=== PATIENT | female | born 1950 | race Caucasian/White ===

== ENCOUNTER 2019-03-28 18:54 | Emergency (ER) | payer BC, MEDICARE ==
[2019-03-28] MEDS ORDERED: OXYCODONE-ACETAMINOPHEN 5-325 MG TABLET PO ONE (19:21)
[2019-03-28] MEDS ORDERED: ONDANSETRON 4 MG TAB.RAPDIS PO ONE (19:21)
[2019-03-28] MEDS ORDERED: DIPH/PERTUSS(ACELL)/TETANUS VAC/PF 0.5 ML SYR (>=10YO) IM ONE (19:21)
--- NOTE | 2019-03-28 19:23 | ER Document Report ---
ED Medical Screen (RME) - General Chief Complaint: Toe Injury Stated Complaint: TOE INJURY Time Seen by Provider: 03/28/19 19:17 Primary Care Provider: MARTINA GRIMM [Primary Care Provider] - Follow up as needed Mode of Arrival: Wheelchair Information source: Patient Notes: Patient presents emergency department with complaints of left great toe nail injury. Reports she was taking her garbage out in her yard when a pimple came matter. She was trying to fight off the pitbull with a garbage can tripped and will of the garbage can pulled her nail back. Patient is unsure when her last tetanus was. She did try to clean the area with water. No active bleeding unsure if there is a laceration to the nailbed. I have greeted and performed a rapid initial assessment of this patient. A comprehensive ED assessment and evaluation of the patient, analysis of test results and completion of the medical decision making process will be conducted by additional ED providers. Dictation of this chart was performed using voice recognition software; therefore, there may be some unintended grammatical errors. TRAVEL OUTSIDE OF THE [place] IN LAST 30 DAYS: No - Related Data Allergies/Adverse Reactions: No Known Allergies Allergy (Verified 03/28/19 18:56) Past Medical History - Social History Chew tobacco use (# tins/day): No Frequency of alcohol use: None Drug Abuse: None - Past Medical History Cardiac Medical History: Reports: Hx Hypertension Pulmonary Medical History: Reports: Hx Pneumonia Renal/ Medical History: Denies: Hx Peritoneal Dialysis Past Surgical History: Reports: Hx Section, Hx Orthopedic Surgery - lower back - Immunizations Hx Diphtheria, Pertussis, Tetanus Vaccination: No Physical Exam - Vital signs Vitals: Temp Pulse Resp BP Pulse Ox 98.4 F 115 H 18 122/62 97 03/28/19 18:58 03/28/19 18:58 03/28/19 18:58 03/28/19 18:58 03/28/19 18:58 Course - Vital Signs Vital signs: Temp Pulse Resp BP Pulse Ox 98.4 F 115 H 18 122/62 97 03/28/19 18:58 03/28/19 18:58 03/28/19 18:58 03/28/19 18:58 03/28/19 18:58 Doctor's Discharge - Discharge Referrals: MARTINA GRIMM [Primary Care Provider] - Follow up as needed
--- NOTE | 2019-03-28 20:10 | RADIOLOGY REPORT (SQ) ---
EXAM DESCRIPTION: TOE LEFT COMPLETED DATE/TIME: 03/28/2019 7:44 pm REASON FOR STUDY: great toenail injury COMPARISON: None. NUMBER OF VIEWS: Three views. TECHNIQUE: AP, lateral, and oblique images acquired of the left first toe. LIMITATIONS: None. FINDINGS: MINERALIZATION: Normal. BONES: No fracture. The toe nail is avulsed. JOINTS: No effusions. SOFT TISSUES: No soft tissue swelling. No foreign body. OTHER: No other significant finding. IMPRESSION: Avulsion of the toenail of left great toe. No fracture is seen. COMMENT: SITE OF TRAUMA/COMPLAINT MARKED/STAMP COMPLETED: No TECHNICAL DOCUMENTATION: JOB ID: [id number] [employer]- All Rights Reserved Reading location - IP/workstation name: [email or web address]
[2019-03-28] MEDS ORDERED: HYDROCODONE/ACETAMINOPHEN 5-325 MG (6 TAB/ER DISP) PO PRN (20:57)
[2019-03-28] MEDS ORDERED: CEPHALEXIN 500 MG CAPSULE PO ONE (20:57)
--- NOTE | 2019-03-28 21:03 | ER Document Report ---
ED Extremity Problem, Lower - General Chief Complaint: Toe Injury Stated Complaint: TOE INJURY Time Seen by Provider: 03/28/19 19:17 Primary Care Provider: KEVIN KEARNEY DPM [ACTIVE STAFF] - Follow up in 3-5 days MARTINA GRIMM [NO LOCAL MD] - Follow up as needed Mode of Arrival: Wheelchair Information source: Patient Notes: 68-year-old female presented to ED for complaint of injury to her left great toe nail and toe. She states she was taking her garbage out in the yard when a pit bull came and tried to attacked her. She states she used the garbage can to try to keep the dog off of her and somehow injured her toe. She is not sure what she hit her toe on. She received a tetanus shot after going to the pit area. She states she tried to clean the toe with water. There was no active bleeding when I did examine the patient. Patient stated she did not want lidocaine used she just wanted the toenail removed. X-ray did not show a fractured toe. TRAVEL OUTSIDE OF THE [place] IN LAST 30 DAYS: No - HPI Patient complains to provider of: Injury, Pain Location: Great Toe Occurred: Just prior to arrival Where: Home, Outdoors Onset/Duration: Gradual Quality of pain: Sharp, Throbbing Severity: Moderate Pain Level: 3 Context: Barefoot Recent injury: Yes Associated symptoms: Painful ambulation Exacerbated by: Movement, Walking Relieved by: Nothing - Related Data Allergies/Adverse Reactions: No Known Allergies Allergy (Verified 03/28/19 18:56) Past Medical History - General Information source: Patient - Social History Smoking Status: Never Smoker Chew tobacco use (# tins/day): No Frequency of alcohol use: None Drug Abuse: None Family History: Reviewed & Not Pertinent Patient has suicidal ideation: No Patient has homicidal ideation: No - Past Medical History Cardiac Medical History: Reports: Hx Hypercholesterolemia, Hx Hypertension Pulmonary Medical History: Reports: Hx COPD, Hx Pneumonia EENT Medical History: Reports: None Neurological Medical History: Reports: None Endocrine Medical History: Reports: None Renal/ Medical History: Reports: None Malignancy Medical History: Reports: None GI Medical History: Reports: None Musculoskeletal Medical History: Reports Hx Musculoskeletal Deformity, Reports Hx Musculoskeletal Trauma Skin Medical History: Reports None Psychiatric Medical History: Reports: None Traumatic Medical History: Reports: None Infectious Medical History: Reports: None Past Surgical History: Reports: Hx Section, Hx Orthopedic Surgery - lower back - Immunizations Hx Diphtheria, Pertussis, Tetanus Vaccination: Yes - 03/28/2019 Review of Systems - Review of Systems Constitutional: No symptoms reported EENT: No symptoms reported Cardiovascular: No symptoms reported Respiratory: No symptoms reported Gastrointestinal: No symptoms reported Genitourinary: No symptoms reported Female Genitourinary: No symptoms reported Musculoskeletal: No symptoms reported Skin: Other - Left great toe nail avulsion Hematologic/Lymphatic: No symptoms reported Neurological/Psychological: No symptoms reported Physical Exam - Vital signs Vitals: Temp Pulse Resp BP Pulse Ox 98.4 F 115 H 18 122/62 97 03/28/19 18:58 03/28/19 18:58 03/28/19 18:58 03/28/19 18:58 03/28/19 18:58 Interpretation: Normal - General General appearance: Appears well, Alert - HEENT Head: Normocephalic, Atraumatic Eyes: Normal Pupils: PERRL - Respiratory Respiratory status: No respiratory distress Chest status: Nontender Breath sounds: Normal Chest palpation: Normal - Cardiovascular Rhythm: Regular Heart sounds: Normal auscultation Murmur: No - Abdominal Inspection: Normal Distension: No distension Bowel sounds: Normal Tenderness: Nontender Organomegaly: No organomegaly - Back Back: Normal, Nontender - Extremities General upper extremity: Normal inspection, Nontender, Normal color, Normal ROM, Normal temperature General lower extremity: Normal color, Normal ROM, Normal temperature, Normal weight bearing. No: Josi's sign Foot: Tender, Nail injury, No evidence of FB, Other - Left great toe nail avulsion. No: Abrasion, Deformity, Ecchymosis, Edema, Instability, Laceration, Metatarsal compress. pain, Navicular tenderness, Puncture wound, Tender 5th metatarsal, Unable to bear weight - Neurological Neuro grossly intact: Yes Cognition: Normal Orientation: AAOx4 Darryl Coma Scale Eye Opening: Spontaneous [place] Coma Scale Verbal: Oriented [place] Coma Scale Motor: Obeys Commands [place] Coma Scale Total: 15 Speech: Normal Motor strength normal: LUE, RUE, LLE, RLE Sensory: Normal - Psychological Associated symptoms: Normal affect, Normal mood - Skin Skin Temperature: Warm Skin Moisture: Dry Skin Color: Normal Location of irregularity: Other - Left great toe nail avulsion Irregularity with: Tenderness - Left great toe Course - Re-evaluation Re-evalutation: 03/28/19 21:10 Patient elected not to have lidocaine to have her toenail removed. Her foot was soaked in soapy water. She has been given tetanus injection. She was also medicated with Percocet in the pit area. Patient was given Keflex and Babcock dispense pack and discharged home with prescription for Keflex. Dressing applied to the toe as well as a postop shoe. - Vital Signs Vital signs: Temp Pulse Resp BP Pulse Ox 97.3 F 91 16 141/50 H 96 03/28/19 21:40 03/28/19 21:40 03/28/19 21:40 03/28/19 21:40 03/28/19 21:40 - Diagnostic Test Radiology reviewed: Image reviewed, Reports reviewed Procedures - Immobilization Left Foot Time completed: 21:30 Pre-Proc Neuro Vasc Exam: Normal Immobilizer type: Post-op shoe Performed by: PCT Post-Proc Neuro Vasc Exam: Normal Alignment checked and good: Yes - Nail Trephanation/Removal Left Great toe Time completed: 21:00 Nail Trepanation/Removal Location: Removal left great toenail Betadine prep applied: Yes Sterile Dressing Applied: Yes Finger Splint: No - Bacitracin, Telfa, Kerlix, and postop shoe Discharge - Discharge Clinical Impression: Nail avulsion Condition: Stable Disposition: HOME, SELF-CARE Additional Instructions: Avulsed Nail You have had a nail avulsion. The nail will regrow, usually with no deformity. The complete process of regrowth takes about three months. (Toenails take about twice as long as fingernails.) Your new nail will be thin and easily injured for about a year. The nail bed (the tissue beneath the nail) will be oozy and tender for about ten days. During this time, it will need protection with bandages. The dressings should be changed every day, or whenever wet or dirty. A small amount of ointment directly on the nail bed can keep dressings from sticking. After early healing (five or six days), you'll want to dry out the nail bed. This is usually done with epsom soaks followed by air exposure. When the nail bed has formed a tough, dry, and non-tender membrane, you may stop dressing it. If redness, swelling, increasing tenderness, drainage, or tender lumps in the groin or armpit above the avulsion occur, call the doctor at once. SOAP CLEANSING: Gently wash the wound daily using a mild soap (like Ivory, Phisoderm, Neutrogena). Use warm water, rubbing gently until all debris, ooze, and crusting have been washed from the wound. Allow to dry briefly (about 10 minutes) after cleaning. Repeat this cleansing at least three times a day for the first two days and then once or twice a day. ANTIBIOTIC OINTMENT PROTECTION: Your wounds are such that dressing them is not practical or optional. After cleansing, you should apply a thin coating of antibiotic ointment (Bacitracin, not Neosporin) to the wounds at least three times daily. This lessens infection risk, and may decrease the amount of scarring. Use a q-tip or dull butter knife, not your finger, to apply this ointment. Any debris or ooze which builds up in the ointment should be gently rubbed off with a sterile gauze pad. Harder crusting may need to be gently scrubbed off with a clean wash cloth with soap and warm water, perhaps applying a warm, wet wash cloth to the wound for ten minutes first. Development of redness, severe itching, or blistering may mean allergy to the ointment. See the doctor. TETANUS IMMUNIZATION GIVEN: You have been given an immunization against tetanus. Please record this in your records. In general, a booster is needed only once every 10 years. The tetanus shot protects against tetanus or "lockjaw," which is a complication of certain wound infections (the tetanus shot cannot protect against the actual infection). The immunization site may become warm and red due to local reaction. If this occurs, apply warm compresses and take aspirin or ibuprofen to reduce inflammation and discomfort. Return for evaluation if the reaction becomes severe. ORAL NARCOTIC MEDICATION: You have been given a [email or web address] dispense pack for pain control. This medication is a narcotic. It's best taken with food, as nausea can result if taken on an empty stomach. Don't operate machinery or drive within six hours of taking this medication. Do not combine this medicine with alcohol, or with any medication which can cause sedation (such as cold tablets or sleeping pills) unless you get permission from the physician. Narcotics tend to cause constipation. If possible, drink plenty of fluids and eat a diet high in fiber and fruits. Cephalexin The antibiotic you've been prescribed is a member of the cephalosporin class. This type of antibiotic covers a wide variety of infections, including those of the skin, lungs, and urinary tract. It's useful for staph infections. This antibiotic is slightly similar to the penicillin family. In rare cases, a person who is allergic to penicillin will also be allergic to this medication. If you have had a severe allergic reaction to penicillin, and have not taken this antibiotic since that time, notify your doctor. Antibiotics which cover many germs ("broad spectrum" antibiotics) are more likely to cause diarrhea or "yeast" infections. Women prone to vaginal yeast problems may suffer an attack after taking this antibiotic. In infants, oral thrush (white spots "stuck" on the cheek) or yeast diaper rash may result. See your doctor if these problems occur. Call at once if you develop itching, hives, shortness of breath, or lightheadedness. Epsom Salt Soaks Soak the wound area in a container of warm epsom salt water. If you can't get the wound area into a bucket or grover, use a folded towel soaked in the epsom salt solution and apply to the area. Use clean hot tap water (about the temperature of a very warm bath), mixing in about one (1) teaspoon for every pint of water. Two gallon --> 16 teaspoons Epsom Salts One gallon --> 8 teaspoons Epsom Salts Two quarts --> 4 teaspoons Epsom Salts One quart --> 2 teaspoons Epsom Salts Soak the wound for about 20 minutes while gently moving it around in the water. Repeat this four (4) times a day. FOLLOW-UP CARE: If you have been referred to a physician for follow-up care, call the physicians office for an appointment as you were instructed or within the next two days. If you experience worsening or a significant change in your symptoms, notify the physician immediately or return to the Emergency Department at any time for re-evaluation. Prescriptions: Cephalexin Monohydrate [Keflex 500 mg Capsule] 500 mg PO Q6H 5 Days capsule Forms: Return to Work Referrals: SIRISHA,NO [NO LOCAL MD] - Follow up as needed KEVIN KEARNEY DPM [ACTIVE STAFF] - Follow up in 3-5 days
[2019-03-28 21:54] VITALS: BP 141/50
== END 2019-03-28 21:40 | disposition home or self-care (01) ==
LOC: ER 18:54
DX: S91.202A Unspecified open wound of left great toe with damage to nail, initial encounter (principal); X58.XXXA Exposure to other specified factors, initial encounter; Z23 Encounter for immunization; I10 Essential (primary) hypertension; J44.9 Chronic obstructive pulmonary disease, unspecified
CPT/HCPCS: 99283; 90471; 73660; 90715; 11750; S0119